=== PATIENT | female | born 1995 | race Two or more races ===

== ENCOUNTER 2018-11-25 17:39 | Emergency (ER) | payer MEDICAID, OTHER ==
[~2018-11-25] VITALS: Ht 172.7 cm; Wt 81.6 kg
[2018-11-25 18:46] VITALS: BP 135/80
[2018-11-25] MEDS: ACETAMINOPHEN/CODEINE#3 (300/30mg) TAB PO ONE (19:19)
== END 2018-11-25 19:40 | disposition home or self-care (01) ==
LOC: ER 17:43
DX: S92.425A Nondisplaced fracture of distal phalanx of left great toe, initial encounter for closed fracture (principal); W22.8XXA Striking against or struck by other objects, initial encounter; Y93.89 Activity, other specified; Y92.89 Other specified places as the place of occurrence of the external cause; Y99.8 Other external cause status
CPT/HCPCS: 73630